=== PATIENT | female | born 1965 | race Hispanic/Latino ===

== ENCOUNTER 2017-10-29 17:41 | Emergency (ER) | payer OTHER ==
--- NOTE | 2017-10-29 19:37 | RAD REPORT ---
EXAM DESCRIPTION: RAD - Forearm Right - 10/29/2017 7:13 pm CLINICAL HISTORY: Fall, wrist pain COMPARISON: None. FINDINGS: Right forearm and right wrist, multiple projections. A fracture of the radial metaphysis is noted with mild displacement. An area of lucency is present at the site of the fracture which may indicate that this represents a pathologic fracture due to underl jones bone lesion. A followup nuclear medicine bone scan may be of value.
[2017-10-29] MEDS ORDERED: IBUPROFEN 400 MG TAB ONE (19:54)
--- NOTE | 2017-10-29 20:43 | RAD REPORT ---
EXAM DESCRIPTION: RAD - Elbow Right 3 View - 10/29/2017 8:34 pm CLINICAL HISTORY: Fall, pain COMPARISON: None. FINDINGS: No fracture or dislocation is seen.
--- NOTE | 2017-10-29 20:45 | RAD REPORT ---
EXAM DESCRIPTION: RAD - Wrist Right 3 View - 10/29/2017 8:33 pm CLINICAL HISTORY: Fall, pain, fracture. COMPARISON: Earlier study same date. FINDINGS: Again noted is acute fracture involving radial aspect of the distal radial metaphysis. Th ere is suspicion for the presence of an underlying lucent lesion involving the radial styloid, which suggests that the fracture seen is possibly pathologic fracture related to an underlying bone lesion.
--- NOTE | 2017-10-29 21:04 | ER ---
Nurse's Notes [facility] Name: Nellie Santillan Age: 52 yrs Sex: Female : 1965 Arrival Date: 10/29/2017 Time: 17:41 Bed 25 Private MD: Diagnosis: Colles' fracture of right radius Presentation: 10/29 18:02 Presenting complaint: Patient states: Fell on outstretched hand 3 days ago, c/o right hb wrist and hand pain 10/10. Busing and swelling noted to right forearm, wrist, and hand. Transition of care: patient was not received from another setting of care. Onset of symptoms was October 26, 2017. Care prior to arrival: None. 18:02 Method Of Arrival: Ambulatory hb 18:02 Acuity: AMY 4 hb Triage Assessment: 19:37 General: Appears in no apparent distress. uncomfortable, well groomed, well developed, kr2 well nourished, Behavior is calm, cooperative, appropriate for age. Pain: Complains of pain in right hand and right wrist and dorsal aspect of right forearm Pain currently is 10 out of 10 on a pain scale. Quality of pain is described as aching, Pain began suddenly, 2-3 days ago. Is continuous, Alleviated by nothing. Aggravated by increased activity, repositioning. Musculoskeletal: Circulation, motion, and sensation intact. Range of motion: limited in right wrist. Musculoskeletal: Swelling present in right hand and right wrist. Injury Description: Deformity. 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 - Social history:: Smoking status: Patient uses tobacco products, smokes one pack cigarettes per day. - Family history:: pertinent for cancer, cholecystitis, CVA or TIA. Screenin:36 Abuse screen: Denies threats or abuse. Denies injuries from another. Nutritional kr2 screening: No deficits noted. Tuberculosis screening: No symptoms or risk factors identified. Fall Risk Fall in past 12 months (25 points). Assessment: 19:39 General: Appears in no apparent distress. uncomfortable, well groomed, well developed, kr2 well nourished, Behavior is calm, cooperative, appropriate for age. Pain: Complains of pain in right arm and right hand and right wrist and dorsal aspect of right forearm Pain currently is 10 out of 10 on a pain scale. Quality of pain is described as aching, Pain began suddenly, 2-3 days ago. Is continuous, Alleviated by nothing. Aggravated by increased activity, repositioning. Neuro: Level of Consciousness is awake, alert, obeys commands, Oriented to person, place, time, situation, Appropriate for age Intact. Cardiovascular: Capillary refill < 3 seconds in bilateral fingers Patient's skin is warm and dry. Respiratory: Airway is patent Respiratory effort is even, unlabored, Respiratory pattern is regular, symmetrical. GI: Abdomen is flat, non-distended. : No signs and/or symptoms were reported regarding the genitourinary system. Denies burning with urination. EENT: Oral mucosa is moist. Derm: Skin is intact, is healthy with good turgor, Skin is pink, warm \T\ dry. Bruising that is dark purple, on right arm and right hand and right wrist and dorsal aspect of right forearm. Musculoskeletal: Circulation, motion, and sensation intact. Range of motion: limited in right wrist. Injury Description: Deformity sustained to right wrist. 20:30 Reassessment: Patient appears in no apparent distress at this time. Patient and/or kr2 family updated on plan of care and expected duration. Pain level reassessed. Patient is alert, oriented x 3, equal unlabored respirations, skin warm/dry/pink. 21:10 Reassessment: Patient appears in no apparent distress at this time. Patient and/or kr2 family updated on plan of care and expected duration. Pain level reassessed. Patient is alert, oriented x 3, equal unlabored respirations, skin warm/dry/pink. Patient states feeling better. Vital Signs: 18:05 BP 149 / 84; Pulse 95; Resp 20; Temp 98; Pulse Ox 96% on R/A; Weight 68.04 kg; Height 5 hb ft. 2 in. (157.48 cm); Pain 10/10; 19:36 BP 128 / 80; Pulse 78; Resp 17; Pulse Ox 98% on R/A; kr2 21:10 BP 124 / 78; Pulse 77; Resp 15; Pulse Ox 99% on R/A; kr2 18:05 Body Mass Index 27.44 (68.04 kg, 157.48 cm) hb ED Course: 17:41 Patient arrived in ED. as 18:05 Triage completed. hb 18:05 Arm band placed on left wrist. hb 18:41 X-ray completed. Portable x-ray completed in exam room. Patient tolerated procedure la2 well. 19:13 Forearm Right XRAY In Process Unspecified. EDMS 19:13 Hand Right 3 View XRAY In Process Unspecified. EDMS 19:18 Alejandrina Christian, ANSON is Primary Nurse. kr2 19:25 Phoenix Turner MD is Attending Physician. ma2 19:39 Patient has correct armband on for positive identification. Bed in low position. Call kr2 light in reach. Side rails up X2. Adult w/ patient. Pulse ox on. NIBP on. Door closed. Warm blanket given. Head of bed elevated. 20:33 Elbow Right 3 View XRAY In Process Unspecified. EDMS 20:33 Wrist Right 3 View XRAY In Process Unspecified. EDMS 20:57 Orthoglass splint: Sugar tong splint applied on right arm. capillary refill less than 3 dh3 seconds Sling applied to right arm. 21:02 All Marie MD is Referral Physician. ma2 21:09 No provider procedures requiring assistance completed. Patient did not have IV access kr2 during this emergency room visit. Administered Medications: 19:35 Drug: Motrin 400 mg Route: PO; kr2 20:32 Follow up: Response: Pain is decreased kr2 Outcome: 21:03 Discharge ordered by . ma2 21:09 Discharged to home ambulatory, with family. kr2 21:09 Condition: good 21:09 Discharge instructions given to patient, family, Instructed on discharge instructions, follow up and referral plans. medication usage, splint care Demonstrated understanding of instructions, follow-up care, medications, splint care, Prescriptions given X 1. 21:11 Patient left the ED. kr2 Signatures: Dispatcher [employer] EDMS Lashell Salguero Heather, RN RN Lisa Reyes dh3 Mckenzie Baker2 Alejandrina Christian RN RN kr2 Phoenix Turner MD MD ma2 Corrections: (The following items were deleted from the chart) : 20:32 Response: Pain is unchanged, physician notified kr2 kr2
--- NOTE | 2017-10-29 21:04 | EDPHYS ---
Physician Documentation [facility] Name: Nellie Santillan Age: 52 yrs Sex: Female : 1965 Arrival Date: 10/29/2017 Time: 17:41 Bed 25 Private MD: ED Physician Phoenix Turner HPI: 10/29 19:32 This 52 yrs old Female presents to ER via Ambulatory with complaints of Arm ma2 Injury, Wrist Injury. 19:32 The patient or guardian complains of contusion. The complaints affect the right ma2 antecubital area, dorsal aspect of right forearm, right wrist and right hand. Context: The problem was sustained at home. Onset: The symptoms/episode began/occurred suddenly, 3 day(s) ago. Severity of symptoms: At their worst the symptoms were moderate, in the emergency department the symptoms are unchanged. The patient has not experienced similar symptoms in the past. tripped, fell 4 days ago, had FOOSH, her with pain at right elbow wrist and hand. 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 - Social history:: Smoking status: Patient uses tobacco products, smokes one pack cigarettes per day. - Family history:: pertinent for cancer, cholecystitis, CVA or TIA. ROS: 19:32 MS/extremity: Positive for rash, swelling. ma2 19:32 Skin: Negative for acute changes. 19:32 All other systems are negative. Exam: 19:32 Constitutional: This is a well developed, well nourished patient who is awake, alert, ma2 and in no acute distress. Head/Face: Normocephalic, atraumatic. Skin: Warm, dry with normal turgor. Normal color with no rashes, no lesions, and no evidence of cellulitis. Neuro: Awake and alert, GCS 15, oriented to person, place, time, and situation. Cranial nerves II-XII grossly intact. Motor strength 5/5 in all extremities. Sensory grossly intact. Cerebellar exam normal. Normal gait. Psych: Awake, alert, with orientation to person, place and time. Behavior, mood, and affect are within normal limits. 19:32 Musculoskeletal/extremity: Extremities: grossly normal except: noted in the right hand and right arm: ROM: limited active range of motion, limited passive range of motion, limited active range of motion due to pain, Circulation is intact in all extremities. Sensation intact. Compartment Syndrome exam of affected extremity: is normal. Vital Signs: 18:05 BP 149 / 84; Pulse 95; Resp 20; Temp 98; Pulse Ox 96% on R/A; Weight 68.04 kg; Height 5 hb ft. 2 in. (157.48 cm); Pain 10/10; 19:36 BP 128 / 80; Pulse 78; Resp 17; Pulse Ox 98% on R/A; kr2 21:10 BP 124 / 78; Pulse 77; Resp 15; Pulse Ox 99% on R/A; kr2 18:05 Body Mass Index 27.44 (68.04 kg, 157.48 cm) hb MDM: 19:26 Patient medically screened. ma2 19:37 Differential diagnosis: closed fracture, contusion, abrasion, tendonitis. ma2 21:01 Data reviewed: vital signs, nurses notes, radiologic studies. Counseling: I had a ma2 detailed discussion with the patient and/or guardian regarding: the historical points, exam findings, and any diagnostic results supporting the discharge/admit diagnosis, the need for outpatient follow up. Response to treatment: the patient's symptoms have markedly improved after treatment. 10/29 18:10 Order name: Forearm Right XRAY; Complete Time: 20:29 hb 10/29 18:10 Order name: Hand Right 3 View XRAY hb 10/29 19:32 Order name: Elbow Right 3 View XRAY; Complete Time: 21:01 ma2 10/29 19:32 Order name: Wrist Right 3 View XRAY; Complete Time: 21:01 ma2 10/29 20:44 Order name: Sugar Tong Forearm Splint: right; Complete Time: 20:54 ma2 Administered Medications: 19:35 Drug: Motrin 400 mg Route: PO; kr2 20:32 Follow up: Response: Pain is decreased kr2 Disposition: 10/29/17 21:03 Discharged to Home. Impression: Colles' fracture of right radius. - Condition is Stable. - Discharge Instructions: Colles Fracture. - Prescriptions for Tylenol- Codeine #3 300-30 mg Oral Tablet - take 2 tablet by ORAL route every 6 hours As needed; 30 tablet. - Medication Reconciliation Form, Thank You Letter, Antibiotic Education, Prescription Opioid Use form. - Follow up: All Marie MD; When: 48 Hours; Reason: Continuance of care. - Problem is new. - Symptoms are unchanged. Signatures: Dispatcher [employer] EDMS Ryann Chau RN RN Alejandrina Christian RN RN kr2 Phoenix Turner MD MD ma2
--- NOTE | 2017-10-31 10:09 | RAD REPORT ---
EXAM DESCRIPTION: RAD - Hand Right 3 View - 10/29/2017 7:13 pm CLINICAL HISTORY: Fall, pain, fracture. COMPARISON: Earlier study same date. FINDINGS: Again noted is acute fracture involving radial aspect of the distal radial metaphysis. The re is suspicion for the presence of an underlying lucent lesion involving the radial styloid, which s uggests that the fracture seen is possibly pathologic fracture related to an underlying bone lesion.
== END 2017-10-29 21:11 | disposition home or self-care (01) ==
LOC: ER 17:41
PROC: 2W3CX1Z Immobilization of Right Lower Arm using Splint (ICD-10-PCS; principal; 2017-10-29)
DX: S52.531A Colles' fracture of right radius, initial encounter for closed fracture (principal); W01.0XXA Fall on same level from slipping, tripping and stumbling without subsequent striking against object, initial encounter; Y93.9 Activity, unspecified; Y92.009 Unspecified place in unspecified non-institutional (private) residence as the place of occurrence of the external cause; I10 Essential (primary) hypertension; J44.9 Chronic obstructive pulmonary disease, unspecified; F17.210 Nicotine dependence, cigarettes, uncomplicated
CPT/HCPCS: 99284

== ENCOUNTER 2019-01-17 08:06 | Emergency (ER) | payer OTHER ==
--- NOTE | 2019-01-17 08:56 | RAD REPORT ---
EXAM DESCRIPTION: RAD - Hand Left 3 View - 01/17/2019 8:45 am CLINICAL HISTORY: PAIN Trauma, hand pain and swelling COMPARISON: No comparisons FINDINGS: Mild arthritic changes involve the radiocarpal joint and first carpometacarpal joint. Ther e is soft tissue swelling seen along the dorsum of the hand. No acute fracture or dislocation evident .
--- NOTE | 2019-01-17 08:57 | RAD REPORT ---
EXAM DESCRIPTION: RAD - Forearm Left - 01/17/2019 8:43 am CLINICAL HISTORY: PAIN Trauma, pain COMPARISON: No comparisons FINDINGS: No acute fracture or dislocation is evident.
--- NOTE | 2019-01-17 09:17 | EDPHYS ---
Physician Documentation [facility] Name: Nellie Santillan Age: 53 yrs Sex: Female : 1965 Arrival Date: 01/17/2019 Time: 08:08 Bed 20 Private MD: ED Physician Luis Antonio Holley HPI: 01/17 09:19 This 53 yrs old Female presents to ER via Ambulatory with complaints of Hand kb Swelling. 09:19 The patient or guardian reports injury, pain, swelling, tenderness. The complaints kb affect the left hand. Context: The problem was sustained at home, resulted from a fall. Onset: The symptoms/episode began/occurred 2 day(s) ago. Modifying factors: The symptoms are alleviated by nothing, the symptoms are aggravated by movement. Associated signs and symptoms: The patient has no apparent associated signs or symptoms. Severity of symptoms: At their worst the symptoms were moderate, in the emergency department the symptoms are unchanged. The patient has not experienced similar symptoms in the past. The patient has not recently seen a physician. 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 - Social history:: Smoking status: Patient uses tobacco products, smokes one-half pack cigarettes per day. - Ebola Screening: : Patient negative for fever greater than or equal to 101.5 degrees Fahrenheit, and additional compatible Ebola Virus Disease symptoms Patient denies exposure to infectious person Patient denies travel to an Ebola-affected area in the 21 days before illness onset No symptoms or risks identified at this time. ROS: 09:17 Constitutional: Negative for fever, chills, and weight loss, Cardiovascular: Negative kb for chest pain, palpitations, and edema, Respiratory: Negative for shortness of breath, cough, wheezing, and pleuritic chest pain, Abdomen/GI: Negative for abdominal pain, nausea, vomiting, diarrhea, and constipation, Skin: Negative for injury, rash, and discoloration, Neuro: Negative for headache, weakness, numbness, tingling, and seizure. 09:17 MS/extremity: Positive for injury or acute deformity, ecchymosis, pain, swelling, of the left wrist and left hand. Exam: 09:17 Constitutional: This is a well developed, well nourished patient who is awake, alert, kb and in no acute distress. Head/Face: Normocephalic, atraumatic. Chest/axilla: Normal chest wall appearance and motion. Nontender with no deformity. No lesions are appreciated. Cardiovascular: Regular rate and rhythm with a normal S1 and S2. No gallops, murmurs, or rubs. Normal PMI, no JVD. No pulse deficits. Respiratory: Lungs have equal breath sounds bilaterally, clear to auscultation and percussion. No rales, rhonchi or wheezes noted. No increased work of breathing, no retractions or nasal flaring. Abdomen/GI: Soft, non-tender, with normal bowel sounds. No distension or tympany. No guarding or rebound. No evidence of tenderness throughout. Skin: Warm, dry with normal turgor. Normal color with no rashes, no lesions, and no evidence of cellulitis. Neuro: Awake and alert, GCS 15, oriented to person, place, time, and situation. Cranial nerves II-XII grossly intact. Motor strength 5/5 in all extremities. Sensory grossly intact. Cerebellar exam normal. Normal gait. 09:17 Musculoskeletal/extremity: Extremities: grossly normal except: noted in the left hand and left wrist: ecchymosis, pain, swelling, tenderness, ROM: intact in all extremities, Circulation is intact in all extremities. Sensation intact. Vital Signs: 08:28 BP 103 / 67; Pulse 85; Resp 16; Temp 98.2; Pulse Ox 98% on R/A; Pain 10/10; iw 09:36 BP 107 / 71; Pulse 81; Resp 18; Temp 97.6; Pulse Ox 99% ; ph MDM: 08:15 Patient medically screened. kb 09:12 Data reviewed: vital signs, nurses notes. Data interpreted: Pulse oximetry: on room air kb is 98 %. Interpretation: normal. Counseling: I had a detailed discussion with the patient and/or guardian regarding: the historical points, exam findings, and any diagnostic results supporting the discharge/admit diagnosis, radiology results, the need for outpatient follow up, a orthopedic surgeon, to return to the emergency department if symptoms worsen or persist or if there are any questions or concerns that arise at home. 01/17 08:16 Order name: Hand Left 3 View XRAY; Complete Time: 09:10 kb 01/17 08:16 Order name: Forearm Left XRAY; Complete Time: 09:10 kb Administered Medications: No medications were administered Disposition: 11:42 Co-signature as Attending Physician, Luis Antonio Holley MD I agree with the assessment and kdr plan of care. Disposition: 01/17/19 09:16 Discharged to Home. Impression: Contusion of left hand, Contusion of left wrist. - Condition is Stable. - Discharge Instructions: Hand Contusion, [id number]. - Medication Reconciliation Form, Thank You Letter, Antibiotic Education, Prescription Opioid Use form. - Follow up: Emergency Department; When: As needed; Reason: Worsening of condition. Follow up: Private Physician; When: 2 - 3 days; Reason: Recheck today's complaints, Continuance of care, Re-evaluation by your physician. Signatures: Dispatcher [employer] EDMS Aysha Segura, ROW BOSS-C ROW BOSS-Ckb Luis Antonio Holley MD MD kdr Edna Valles, ANSON RN iw Fannie Pepper RN RN ph Corrections: (The following items were deleted from the chart) 09:36 09:16 01/17/2019 09:16 Discharged to Home. Impression: Contusion of left hand; ph Contusion of left wrist. Condition is Stable. Forms are Medication Reconciliation Form, Thank You Letter, Antibiotic Education, Prescription Opioid Use. Follow up: Emergency Department; When: As needed; Reason: Worsening of condition. Follow up: Private Physician; When: 2 - 3 days; Reason: Recheck today's complaints, Continuance of care, Re-evaluation by your physician. kb
--- NOTE | 2019-01-17 09:17 | ER ---
Nurse's Notes [facility] Name: Nellie Santillan Age: 53 yrs Sex: Female : 1965 Arrival Date: 01/17/2019 Time: 08:08 Bed 20 Private MD: Diagnosis: Contusion of left hand;Contusion of left wrist Presentation: 01/17 08:24 Presenting complaint: Patient states: had a fall Tuesday night, fell on left hand, has iw bruising and swelling to left hand and wrist. Transition of care: patient was not received from another setting of care. Onset of symptoms was January 15, 2019. Risk Assessment: Do you want to hurt yourself or someone else? Patient reports no desire to harm self or others. Initial Sepsis Screen: Does the patient meet any 2 criteria? No. Patient's initial sepsis screen is negative. Does the patient have a suspected source of infection? No. Patient's initial sepsis screen is negative. Care prior to arrival: None. 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 - Social history:: Smoking status: Patient uses tobacco products, smokes one-half pack cigarettes per day. - Ebola Screening: : Patient negative for fever greater than or equal to 101.5 degrees Fahrenheit, and additional compatible Ebola Virus Disease symptoms Patient denies exposure to infectious person Patient denies travel to an Ebola-affected area in the 21 days before illness onset No symptoms or risks identified at this time. Screenin:32 Abuse screen: Denies threats or abuse. Denies injuries from another. Nutritional ph screening: No deficits noted. Tuberculosis screening: No symptoms or risk factors identified. Fall Risk None identified. Assessment: 09:00 General: Appears in no apparent distress. comfortable, Behavior is calm, cooperative, ph appropriate for age. Pain: Complains of pain in left hand. Neuro: Level of Consciousness is awake, alert, obeys commands, Oriented to person, place, time, situation. Cardiovascular: Capillary refill < 3 seconds in bilateral fingers Patient's skin is warm and dry. Respiratory: Airway is patent Respiratory effort is even, unlabored, Respiratory pattern is regular, symmetrical. Derm: Skin is intact, is healthy with good turgor, Skin is pink, warm \T\ dry. Bruising that is dark purple, on left hand. Musculoskeletal: Circulation, motion, and sensation intact. Range of motion: intact in all extremities. Vital Signs: 08:28 BP 103 / 67; Pulse 85; Resp 16; Temp 98.2; Pulse Ox 98% on R/A; Pain 10/10; iw 09:36 BP 107 / 71; Pulse 81; Resp 18; Temp 97.6; Pulse Ox 99% ; ph ED Course: 08:08 Patient arrived in ED. as 08:15 Aysha Segura FNP-C is [facility]. kb 08:15 Luis Antonio Holley MD is Attending Physician. kb 08:23 Edna Valles, RN is Primary Nurse. iw 08:26 Triage completed. iw 08:28 Arm band placed on. iw 08:39 X-ray completed. Portable x-ray completed in exam room. Patient tolerated procedure sw well. 08:42 Hand Left 3 View XRAY In Process Unspecified. EDMS 08:42 Forearm Left XRAY In Process Unspecified. EDMS 09:32 Patient has correct armband on for positive identification. Bed in low position. Call ph light in reach. Side rails up X 1. Pulse ox on. NIBP on. 09:34 No provider procedures requiring assistance completed. Patient did not have IV access ph during this emergency room visit. Administered Medications: No medications were administered Outcome: 09:16 Discharge ordered by . kb 09:35 Discharged to home ambulatory. ph 09:35 Condition: good 09:35 Discharge instructions given to patient, Instructed on discharge instructions, follow up and referral plans. Demonstrated understanding of instructions, follow-up care. 09:36 Patient left the ED. ph Signatures: Dispatcher [employer] EDMS Aysha Segura FNP-C FNP-Ckb Martinez, Amelia as Edna Valles RN RN iw Fannie Pepper RN RN Harinder, Evelina sw
== END 2019-01-17 09:36 | disposition home or self-care (01) ==
LOC: ER 08:06
DX: S60.222A Contusion of left hand, initial encounter (principal); S60.212A Contusion of left wrist, initial encounter; W19.XXXA Unspecified fall, initial encounter; Y92.009 Unspecified place in unspecified non-institutional (private) residence as the place of occurrence of the external cause; J44.9 Chronic obstructive pulmonary disease, unspecified; I10 Essential (primary) hypertension; Z79.899 Other long term (current) drug therapy; F17.210 Nicotine dependence, cigarettes, uncomplicated
CPT/HCPCS: 99283